=== PATIENT | female | born 1995 | race Asian ===

== ENCOUNTER 2017-07-09 09:03 | Observation (INO) | payer OTHER ==
[2017-07-09] VITALS (12 sets, daily range): BP systolic 115–136; BP diastolic 54–85
[~2017-07-09] VITALS: Ht 170.2 cm; Wt 52.6 kg
[~2017-07-09 09:03] MED LIST: NKM
[2017-07-09] MEDS ORDERED: Lidocaine 1% MPF 10mg/ml 5ml ONE (09:09)
[2017-07-09] MEDS ORDERED: Lidocaine 1% Plain 30 ml INJ ONE (09:10)
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
[2017-07-09] MEDS ORDERED: Lidocaine HCl 2% Jelly 5ml Tube TOPIC ONE ×2 (09:25→13:00)
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
[2017-07-09 11:07] LABS: BASOPHILS % (AUTO) 2.1 % (0.0-2.0); EOSINOPHILS % (AUTO) 0.5 % (0.0-3.0); LYMPHOCYTES % (AUTO) 19.7 % (20.0-45.0); MEAN CORPUSCULAR HEMOGLOBIN 25.7 PG (27.0-31.0); MEAN CORPUSCULAR HGB CONC 31.1 G/DL (32.0-36.0); MEAN CORPUSCULAR VOLUME 83 FL (80-99); MEAN PLATELET VOLUME 6.5 FL (6.5-10.1); MONOCYTES % (AUTO) 10.8 % (1.0-10.0); NEUTROPHILS % (AUTO) 66.9 % (45.0-75.0); PLATELET COUNT 354 K/UL (150-450); RED BLOOD COUNT 5.27 M/UL (4.20-5.40); RED CELL DISTRIBUTION WIDTH 13.5 % (11.6-14.8); WHITE BLOOD COUNT 5.4 K/UL (4.8-10.8)
[2017-07-09 11:18] LABS: PROTHROMBIN TIME 10.6 SEC (9.30-11.50)
[2017-07-09 11:20] LABS: ANION GAP 8 mmol/L (5-15); CALCIUM 9.1 MG/DL (8.5-10.1); CARBON DIOXIDE 27 MMOL/L (21-32); CHLORIDE 106 MMOL/L (98-107); CREATININE 0.8 MG/DL (0.55-1.30); GLOMERULAR FILTRATION RATE > 60 mL/min (>60); POTASSIUM 3.5 MMOL/L (3.5-5.1); SODIUM 140 MMOL/L (136-145)
[2017-07-09 11:25] LABS: ALANINE AMINOTRANSFERASE 16 U/L (12-78); ALBUMIN/GLOBULIN RATIO 1.1 (1.0-2.7); ASPARTATE AMINO TRANSFERASE 15 U/L (15-37); TOTAL PROTEIN 7.9 G/DL (6.4-8.2)
[2017-07-09] MEDS ORDERED: ceFAZolin 1gm/50ml Premix 50 ML IV ONE ×2 (12:45→16:00)
[2017-07-09] MEDS ORDERED: Lidocaine 1% MPF 10mg/ml 5ml INJ ONE (13:00)
[2017-07-09] MEDS ORDERED: ceFAZolin 1gm in D5W 55ml IVPB ONE (13:00)
--- NOTE | 2017-07-09 13:26 | Diagnostic Imaging Report ---
Indication: Chest pain Technique: One view of the chest Comparison: none Findings: Lungs and pleural spaces are clear. Heart size is normal Impression: No acute process
[2017-07-09] MEDS ORDERED: Bacitracin Oint 15gm Tube TOPIC ONE (15:33)
[2017-07-09] MEDS ORDERED: Lidocaine 1% 10mg/ml/EPI 0.01mg/ml 50ml INJ ONE (15:34)
[2017-07-09] MEDS ORDERED: Bupivacaine 0.5% Inj 30 ml vial INJ ONE (15:34)
[2017-07-09] MEDS ORDERED: Propofol 200mg/20ml IV ONE (15:34)
--- NOTE | 2017-07-09 15:35 | Pre-Procedure Note/Attestation ---
Pre-Procedure Note/Attestation Complete Prior to Procedure Planned Procedure: left Procedure Narrative: Left ear debridement and washout, repair of cartilage and lacerations, possible skin graft Indications for Procedure Pre-Operative Diagnosis: complex left ear traumatic abrasions and lacerations, with possible loss of soft tissue Attestation I attest that I discussed the nature of the procedure; its benefits; risks and complications; and alternatives (and the risks and benefits of such alternatives ), prior to the procedure, with the patient (or the patient's legal maintenance representative). I attest that, if there was a reasonable possibility of needing a blood transfusion, the patient (or the patient's legal maintenance representative) was given the [place] Department [employer] Services standardized written summary, pursuant to the Lion Evelio Blood Safety Act ([place] Health and Safety Code # 1645, as amended). I attest that I re-evaluated the patient just prior to the surgery and that there has been no change in the patient's H&P, except as documented below: JONAS AZAR M.D. Jul 09, 2017 15:35
[2017-07-09] MEDS ORDERED: Meperidine 50mg/ml Inj(FOR RIGORS ONLY) ONE (15:45)
[2017-07-09] MEDS ORDERED: Sterile Water Irrig 1000ml IRRIG ONE ×2 (15:45)
[2017-07-09] MEDS ORDERED: LR 1000ml ONE ×2 (15:45)
[2017-07-09] MEDS ORDERED: fentaNYL 100 mcg/2 mL IV ONE (15:45)
[2017-07-09] MEDS ORDERED: NS Irrig 1000ml ONE ×2 (15:45)
[2017-07-09] MEDS ORDERED: Midazolam 2mg/2ml Inj ONE (15:45)
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
[2017-07-09] MEDS ORDERED: Hydrogen Peroxide 473ml Bottle TOPIC ONE (16:15)
[2017-07-09] MEDS ORDERED: Muri-Lube ONE (16:24)
[2017-07-09] MEDS ORDERED: EPINEPHrine 1mg/1ml Amp ONE (16:25)
[2017-07-09] MEDS ORDERED: NS Irrig 1000ml IRRIG ONE (16:30)
[2017-07-09] MEDS ORDERED: LR 1000ml 1,000 ML IVLG SCH (16:31)
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
--- NOTE | 2017-07-09 16:37 | Immediate Post-Op Evaluation ---
Immediate Post-Op Evalulation Immediate Post-Op Evalulation Procedure: Repair of laceration left ear with skin graft Date of Evaluation: Jul 09, 2017 Time of Evaluation: 18:30 IV Fluids: 500 Blood Pressure Systolic: 121 Blood Pressure Diastolic: 66 Pulse Rate: 93 Respiratory Rate: 17 O2 Sat by Pulse Oximetry: 100 Temperature (Fahrenheit): 97.7 Pain Score (1-10): 0 Nausea: No Vomiting: No Complications No complication Patient Status: awake, patent, none Hydration Status: adequate Drug: Ancef Given Within 1 Hr of Incision: Yes Time Given: 13:55 CHIRAG TRACEY M.D. Jul 09, 2017 16:37
[2017-07-09] MEDS ORDERED: Hydromorphone 0.5mg/0.5ml inj IVP PRN (16:45)
[2017-07-09] MEDS ORDERED: Ketorolac 30mg Inj IV PRN (16:45)
[2017-07-09] MEDS ORDERED: DiphenhydrAMINE 50mg/ml Inj IVP PRN (16:45)
--- NOTE | 2017-07-09 18:08 | Brief Operative Note ---
Immediate Post Operative Note Operative Note Chief Complaint: Left ear injury Pre-op Diagnosis: complex left ear traumatic abrasions and lacerations, with possible loss of soft tissue Procedure: Left ear debridement and washout, repair of lacerations with primary repair and flap advancement, Full thickness skin graft to left ear Post-op Diagnosis: same as pre-op Surgeon: Jonas Azar Telephone Station Repairer: None Anesthesia: general Specimen: none Complications: none Condition: stable Fluids: see anesthesia record Estimated Blood Loss: minimal Drains: none Packing: Ear cotton ball. Xeroform bolster dressing over left ear. Implant(s) used?: No JONAS AZAR M.D. Jul 09, 2017 18:08
[2017-07-09] MEDS ORDERED: Tylenol #3 tab (300mg/30mg) ORAL PRN (18:15)
[2017-07-09] MEDS ORDERED: Norco 5mg/325mg tab ORAL PRN ×3 (18:15→19:45)
[2017-07-09] MEDS ORDERED: HYDROmorphone 1mg/ml Carpuject SUBQ PRN (18:15)
--- NOTE | 2017-07-09 18:32 | 48 Hour Post Anesthesia Eval ---
Post Anesthesia Evaluation Procedure: Repair of laceration left ear with skin graft Date of Evaluation: Jul 09, 2017 Time of Evaluation: 19:00 Blood Pressure Systolic: 125 0: 68 Pulse Rate: 96 Respiratory Rate: 18 O2 Sat by Pulse Oximetry: 100 Airway: patent Nausea: No Vomiting: No Pain Intensity: 2 Hydration Status: adequate Cardiopulmonary Status: Stable Mental Status/LOC: patient returned to baseline Follow-up Care/Observations: As per surgery Post-Anesthesia Complications: No anesthetic complication Follow-up care needed: N/A CHIRAG TRACEY M.D. Jul 09, 2017 18:32
[2017-07-09] MEDS: Cephalexin 500mg cap ORAL SCH (21:31)
[2017-07-10 00:20] VITALS: BP 120/63
[2017-07-10 04:00] VITALS: BP 100/56
[2017-07-10 08:00] VITALS: BP 108/74
[2017-07-10] MEDS: Cephalexin 500mg cap ORAL SCH ×2 (08:50→12:16)
[2017-07-10] MEDS ORDERED: CEPHALEXIN500 MG ORAL (09:37)
[2017-07-10] MEDS ORDERED: NORCO 5-325 TA1 EACH ORAL (09:38)
[2017-07-10 12:00] VITALS: BP 110/68
--- NOTE | 2017-07-10 23:15 | Operative Note - Dictated ---
DATE OF OPERATION: 07/09/2017 PREOPERATIVE DIAGNOSIS: Traumatic injury to the left ear. POSTOPERATIVE DIAGNOSIS: Traumatic injury to the left ear. PROCEDURE: Debridement and washout of left ear, repair of multiple ear lacerations and flap closure of the wounds, and full-thickness skin grafting of the left ear. SURGEON: Cachorro Amanda M.D. MANAGER AUDIO: None. ANESTHESIA: General anesthesia. COMPLICATIONS: None. FINDINGS DURING THIS PROCEDURE: Multiple lacerations along the antihelix of the ear that measures and throughout the inside of the ear with a 3 x 2 cm area of skin loss along the ball of the eb as well as another 1 x 1 cm area of skin loss where the skin was abraded off of the ear cartilage. Lacerations throughout the ear measured approximately 7 to 8 cm in total length and there is a section of the tragus that is exposed as well. Complications during this procedure were none. Estimated blood loss was minimal. A skin graft was harvested from the left groin area. The harvested skin graft was measured 4 x 3 cm in size. PROCEDURE NOTE IN DETAIL: The patient was prepped and draped in the usual sterile fashion after general anesthesia was induced. The entire left ear was first cleaned with hydrogen peroxide to remove all the dirt and grime and scrubbed down. Once that was cleaned off, the entire area was prepped with Betadine. Prior to prepping, a cotton ball was used to pack the ear so that fluid did not get inside the ear. After prepping, this cotton ball was changed to sterile cotton balls. Once the patient was prepped and draped in the usual sterile fashion, all the nonviable soft tissue was debrided sharply using a #15 blade scalpel as well as curved tenotomy scissors. Nonviable tissue was debrided. Any foreign body was also debrided. There were tiny gravel particulates and dirt debris that were debrided from the wound. A section of the conchal bowl, which measures approximately 3 x 2 cm in size as well as the tragus of the ear was exposed and another section of the conchal bowl was also exposed with a small section of the antihelix exposed as well. After debriding all the soft tissue overlying the cartilage of the ear, skin flaps were mobilized along either side of the tragus using a #10 blade scalpel. Electrocautery was then used to obtain hemostasis. The flaps were then advanced and used to close and cover the tragus. Similarly, another section of the antihelix towards the top of the ear was closed in the same way. Next, a transverse laceration across the top portion of the ear was closed in a running continuous fashion using 5-0 fast absorbing plain gut in a running continuous fashion. This was reinforced with interrupted 5-0 chromic sutures. The flaps that were advanced and closed over the tragus were closed in the same fashion. Next, I measured about the size of the wound defect and conchal bowl that required skin grafting. Then, I went to the left groin area, which had been prepped and draped in the usual sterile fashion as well and marked out an elliptical section of skin that measured 4 x 3 cm in size. This area was injected with 1% lidocaine with epinephrine mixed 50:50 with 0.25% Marcaine with epinephrine and injected in a field block. A #15 blade scalpel was then used to harvest a full-thickness skin graft from this area. The skin graft was pinned down and then applied to the left ear area to make sure that if that is the defect. The edges of the skin flaps were then sewn in using 5-0 chromic running continuous sutures all circumferentially around the defect. The skin graft was customized to the defect while trimming little areas along the border overall and fit the defect perfectly. After sewing in the skin graft, it was pie-crusted using a #15 blade scalpel and then it was contoured to the shape and tacked down to the shape of the conchal bowl and antihelix using 5-0 chromic sutures that anchored down the skin graft to the cartilage to secure it. Once the skin graft was sewn in, the donor site was then closed in layers using 3-0 Monocryl interrupted deep dermal sutures and 4-0 Monocryl subcuticular running continuous sutures. Benzoin tincture and Steri-Strips were placed over the graft harvest site in the left ear and ear packing was changed to a new sterile cotton ball and then copious amounts of bacitracin ointment was applied along all the suture lines and over the skin graft, and a Xeroform bolster dressing was applied to the left ear. A head wrap was then placed to secure the bolster dressing in place. The patient tolerated the procedure well without any problems. The patient was extubated in the operating room and transferred to the postanesthesia care unit in good stable condition. Cachorro Amanda M.D. DR: JOSE JOB#: [id number] CC: TRISH
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
== END 2017-07-10 12:31 | disposition home or self-care (01) ==
LOC: EDBD 09:03 → EMR 09:40 → SUR 12:36 → 3E 15:23
DX: S01.312A Laceration without foreign body of left ear, initial encounter (principal); S00.01XA Abrasion of scalp, initial encounter; R07.9 Chest pain, unspecified; Z23 Encounter for immunization; V03.10XA Pedestrian on foot injured in collision with car, pick-up truck or van in traffic accident, initial encounter; Y93.01 Activity, walking, marching and hiking; Y92.414 Local residential or business street as the place of occurrence of the external cause
CPT/HCPCS: 14060; 15260; 36415; 70450; 71010; 80053; 81025; 85025; 85610; 85730; 86850; 86900; 86901; 99285; G0378; J0690; J2175; J2250; J2405; J2704; J3010; J3490; J7120; 94003; 94150